=== PATIENT | female | born 1955 | race Caucasian/White ===

== ENCOUNTER → 2016-07-28 | Outpatient (CLI) | payer OTHER ==
[~2016-07-28] MED LIST: ACCUNEB0.63 MG/3; ACTONEL35 MG PO; ADVAIR 500-501 EACH; ADVAIR 500/501 DISK; ALBUTEROL; ALBUTEROL17 GM IH; ALENDRONATE SOD70 MG PO; ALLERGY RELIEF; ANALGESIC325 M1 PO; AQUAPHOR; ASCORBIC ACID500 M3 PO; ASPIRIN325 MG PO; ATARAX,VISTARIL25 MG PO; Advair HFA 230/21 IH; BACITRACIN OINTMENT; BENICAR20 MG PO; BETADINE SOLUT480 ML; Baclofen PO; CALAN SR,COVER180 MG PO; CALCIUM CITRATE +D; CATAPRES0.1 MG PO; CATAPRES0.2 MG PO; CHILDREN'S100 MG/54; CITRACAL W/V1 TABLET PO; COLACE10 MG/ML PO; CORICIDIN HBP1 EAC2; Carafate PO; Catapres PO; Cleocin PO; DOLOBID500 MG PO; DuoNeb IH; Ecotrin PO; FLAVOXATE HCL100 MG PO; FLONASE16 G1 BOTH NARES; FLOVENT DISKUS1 DIS2 IH; Flonase BOTH NARES; Fosamax PO; GABAPENTIN300 MG; GABAPENTIN300 MG PO; HYDROXYZINE HCL25 MG PO; K-Dur PO; K-TAB10 MEQ PO; LASIX10 MG PO; LASIX40 MG PO; LEXAPRO10 MG PO; LIDOCAINE700 MG; LIDODERM 5% P1 PATCH; LIORESAL10 MG PO; Lasix PO; Lexapro PO; Lidoderm 5% Patch TD; Lioresal PO; METAMUCIL; METOPROLOL SUCC25 MG PO; MITRAZOL POWDER30 GM; Metamucil Packet PO; NASONEX17 GM NS; NEURONTIN300 MG PO; NEXIUM40 MG PO; NYSTATIN POWDER; Neurontin PO; Nizoral 2% Cream TP; NovoLOG Pen 3 ml SC; OMEPRAZOLE; OXYCODONE; Oscal 500 w/Vitamin PO; PAIN & FEVER325 MG PO; PERCOCET 5-3251 EACH PO; PROVENTIL,2.5 MG/3 M IH; PYRIDOXINE HCL100 MG PO; Protonix PO; Pyridoxine,Vitamin B PO; Remove Lidoderm Patc TD; Robitussin, Organidi PO; SINGULAIR10 MG PO; SUCRALFATE1 GM/10 ML; Santyl TP; TOPROL XL100 MG PO; TRAZODONE 25 MG; TRAZODONE HCL100 MG PO; TUMS; TYLENOL; Tums,OsCal PO; Tylenol Regular Stre PO; VENTOLIN HFA18 GM IH; VERELAN 240 MG240 MG PO; VICODIN 5-5001 EACH PO; VITAMIN C 500MG; WYGESIC,DARV1 TABLET PO; ZANTAC300 MG PO; ZYRTEC10 M2 PO; Zosyn IV; [UNRECOGNIZED DRUG - OTHER]; [UNRECOGNIZED DRUG - OTHER]; [UNRECOGNIZED DRUG - OTHER]; [UNRECOGNIZED DRUG - OTHER] PO
== END ==
LOC: RAD 07-23 13:00
DX: N95.0 Postmenopausal bleeding (principal)
CPT/HCPCS: 76856